=== PATIENT | male | born 1950 | race Caucasian/White ===

== ENCOUNTER → 2020-10-02 04:15 | Outpatient (CLI) | payer MEDICARE, OTHER, SELFPAY ==
[2020-10-02 19:57] LABS: SARS-CoV-2 RNA PCR Negative
== END ==
PROVIDERS: PCP Family Medicine; Visit Provider Plastic Surgery
DX: Z01.812 Encounter for preprocedural laboratory examination (principal); Z20.822 Contact with and (suspected) exposure to COVID-19
CPT/HCPCS: C9803; U0003; U0005

== ENCOUNTER 2020-10-02 08:44 | Outpatient (CLI) | payer MEDICARE, OTHER, SELFPAY ==
--- NOTE | 2020-10-02 08:52 | ECG_ITS ---
Measurements Intervals [place] Rate: 56 P: 20 AL: 174 QRS: 16 QRSD: 126 T: 2 QT: 414 QTc: 400 Interpretive Statements SINUS BRADYCARDIA VENTRICULAR BIGEMINY ABNORMAL ECG Electronically Signed On 10-02-2020 9:16:29 CDT by Will Diamond D.O.
== END 2020-10-02 08:45 | disposition home or self-care (01) ==
PROVIDERS: PCP Family Medicine; Visit Provider Anesthesiology
DX: Z01.810 Encounter for preprocedural cardiovascular examination (principal); I10 Essential (primary) hypertension; R94.31 Abnormal electrocardiogram [ECG] [EKG]
CPT/HCPCS: 93005; C9803; U0003; U0005

== ENCOUNTER 2020-10-05 02:02 | Day surgery (SDC) | payer MEDICARE, OTHER, SELFPAY ==
[2020-09-26 13:59] VITALS: BMI 24.0
[2020-10-05] VITALS (8 sets, daily range): BP systolic 108–129; BP diastolic 52–69; PULSE 48–67; RESP 16–24; TEMP 36.2–36.3; O2SAT 100
--- NOTE | 2020-10-05 07:21 | WPDHPUPDATE1 ---
History and Physical Update Update Date/Time: 10/05/20 07:21 History and Physical has been reviewed, including an updated exam of the patient. There are NO changes in the patient's condition. Risks, benefits, and alternatives have been discussed and questions answered. Patient agrees to proceed with procedure.
[2020-10-05] MEDS: LACTATED RINGERS 1,000 ML 30 ML IV CONT (10:20)
--- NOTE | 2020-10-05 10:34 | WPDANESEPPF ---
Anes - Initial Pre Proc Eval Procedure: Operation Date: 10/05/20 11:30 Proposed Procedures p Right Partial Palmar Fasciectomy - Bryce Cash MD Date/Time: 10/05/20 10:34 Surgeon: Bryce Cash MD Pre Op Diagnosis: dupuytren's contracture right small finger Patient Data Age: 70 Gender: M Height: 5 ft 8.5 in Weight: 71.65 kg Last Vital Signs Temp 97.1 F L 10/05/20 09:33 Pulse 48 L 10/05/20 09:33 Resp 20 10/05/20 09:33 BP 121/53 L 10/05/20 09:33 Pulse Ox 100 10/05/20 09:33 Allergies Allergy/AdvReac Type Severity Reaction Status Date / Time No Known Allergies Allergy Verified 10/05/20 10:11 Home Medications Medication Instructions Recorded Confirmed Type aspirin [Aspirin Low Dose] 81 mg PO DAILY 09/26/20 10/05/20 History atorvastatin 40 mg PO HS 09/26/20 10/05/20 History calcium carbonate-vitamin D3 1 tablet PO BID 09/26/20 10/05/20 History [Calcium + D] metoprolol succinate 12.5 mg PO QAM 09/26/20 10/05/20 History omeprazole 20 mg PO DAILY PRN 09/26/20 10/05/20 History Patient hx anesthesia problems: none Family hx anesthesia problems: none PMFSH Past Medical History Medical History (Updated 10/05/20 @ 10:38 by Raudel Sanchez MD) Arthritis Hyperlipidemia Hypertension Surgical History Surgical History (Updated 10/05/20 @ 10:38 by Raudel Sanchez MD) S/P CABG x 5 Social History Social History Smoking packs per day: 0.5 Smoking cigarettes per day: 10.0 Years smoked: 35 Smoking pack-years: 17.50 Smoking status: Former smoker Smoking end date: 12/08/07 Alcohol intake: never Substance use: never Living arrangements: alone Spiritual care concerns: No Anes - Eval Final PreProcedure Day of Procedure 10/05/20 10:34 Patient weight: normal Heart: regular rate and rhythm Lungs: clear to auscultation Airway: Mallampati scale class II Neurological: alert and oriented Last oral intake: >/= 8 hours ASA classification: III Emergent: no Anesthetic plan: proceed Anesthesia type and monitoring: general LMA and standard monitoring Informed Consent: The patient's anesthetic plan and its attendant risks and benefits were discussed with the patient/family/POA. Questions were solicited and answers provided to the satisfaction of the patient/family/POA.
[2020-10-05] MEDS: LIDO 1%/EPINEPHRINE 1:100,000 50 ML VIAL INFILTRATE (11:30)
--- NOTE | 2020-10-05 12:32 | PM.OP ---
Procedure Note - Brief Procedure Note - Brief Date of procedure: 10/05/20 Pre-op diagnosis: dupuytren's contracture right small finger Post-op diagnosis: same Procedure performed: Partial palmar fasciectomy right hand Implants: None Anesthesia: GETA Surgeon: Bryce Cash MD Guest Service Agent: Valeria Estimated blood loss (mL): 5 Tourniquet time (min): 56 Drains: No Packing: No Pathology: none sent Complications: No immediate complications Condition: stable Disposition: PACU
--- NOTE | 2020-10-05 12:36 | PM.PROC ---
Procedure Note - Detailed Date of procedure: 10/05/20 Pre-op diagnosis: dupuytren's contracture right small finger Post-op diagnosis: same Procedure performed: Right partial palmar fasciectomy of the small finger. Right 5th lumbrical tendon release Description of procedure: The contracted right small finger was marked on the patient holding. He was taken to the operating room and placed supine on the operating table. A time-out was held and confirmed. He was given general endotracheal anesthesia. The extremity was prepped and draped usual fashion. The site was marked for a diagonal palmar incision and a volar midline incision. 1% lidocaine with epinephrine was infiltrated locally. The tourniquet was inflated to 250 mmHg. The incision was made in the palm. The skin flaps were elevated and the pretendinous cord was removed care was taken to identify and preserve neurovascular bundles. The volar midline incision was made and skin flaps elevated to either side. The large nodular cord was removed from the proximal phalanx. This extended onto the middle phalanx on the ulnar side. This was removed. There was no spiral cord. The neurovascular bundles were protected. At that point the proximal interphalangeal joint could be straightened with a little additional pressure. Under this condition however, the distal interphalangeal joint could not be flexed. For that reason I proceed to release of the lumbrical tendon. This allowed passive flexion of the distal interphalangeal joint with the proximal interphalangeal joint flexed or extended. The wound was closed with the use of the Z-plasty over the middle phalanx. The tourniquet was released during that portion of the case a bulky bandage was applied with a volar Alumafoam splint allowing distal interphalangeal joint range of motion. The patient was discharged from the operating room to the recovery. He has instructions in wound care and follow-up. He will have a prescription for hydrocodone . Surgeon: Bryce Cash MD
== END 2020-10-05 14:20 | disposition home or self-care (01) ==
PROVIDERS: PCP Family Medicine; Visit Provider Plastic Surgery
PROC: (CPT 26045; principal; 2020-10-05 11:30)
DX: M72.0 Palmar fascial fibromatosis [Dupuytren] (principal); I10 Essential (primary) hypertension; E78.5 Hyperlipidemia, unspecified; K21.9 Gastro-esophageal reflux disease without esophagitis; I25.10 Atherosclerotic heart disease of native coronary artery without angina pectoris; Z95.1 Presence of aortocoronary bypass graft; Z87.891 Personal history of nicotine dependence
CPT/HCPCS: 26123; A9270; J2250; J2704; J3010; J7120

== ENCOUNTER 2022-10-08 12:37 | Outpatient (CLI) | payer MEDICARE, OTHER, SELFPAY | END 2022-10-08 12:38 | disposition home or self-care (01) | PROVIDERS: PCP Family Medicine; Visit Provider Specialist | DX: C44.712 Basal cell carcinoma of skin of right lower limb, including hip (principal) | CPT/HCPCS: 88305 ==

== ENCOUNTER 2023-11-10 07:36 | Outpatient (CLI) | payer MEDICARE, OTHER, SELFPAY ==
--- NOTE | 2023-11-10 08:04 | ECG_ITS ---
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 Measurements Intervals [place] Rate: 47 P: 41 NM: 220 QRS: 24 QRSD: 121 T: -14 QT: 457 QTc: 405 Interpretive Statements SINUS BRADYCARDIA WITH FIRST DEGREE AV BLOCK MODERATE INTRAVENTRICULAR CONDUCTION DELAY [110+ ms QRS DURATION] NONSPECIFIC ST & T-WAVE ABNORMALITY ABNORMAL ECG No previous ECG available for comparison Electronically Signed On 11-10-2023 14:46:30 CDT by Yossi Schneider M.D.
== END 2023-11-10 07:37 | disposition home or self-care (01) ==
LOC: ANHLAB 07:40
PROVIDERS: PCP Family Medicine; Visit Provider Anesthesiology
DX: Z01.818 Encounter for other preprocedural examination (principal); E11.22 Type 2 diabetes mellitus with diabetic chronic kidney disease; N18.9 Chronic kidney disease, unspecified; R94.31 Abnormal electrocardiogram [ECG] [EKG]; I44.0 Atrioventricular block, first degree; I45.89 Other specified conduction disorders
CPT/HCPCS: 93005

== ENCOUNTER 2023-11-13 10:19 | Day surgery (SDC) | payer MEDICARE, OTHER, SELFPAY ==
[2023-11-07 14:39] VITALS: BMI 25.8
--- NOTE | 2023-11-07 15:04 | PC.NURSE ---
CALLED DR SHANT MORRIS OFFICE, THEY ARE FAXING CMP LABWORK FROM END OF SEPTEMBER 2023.
--- NOTE | 2023-11-13 07:05 | P.OP_ITS ---
Procedure Note - Detailed Date of Procedure 11/13/23 Pre-op Diagnosis Dupuytrens Contracture Left Small Finger Post-op Diagnosis Same Procedure Performed left small finger fasciectomy Surgeon Vijaya Garcia MD [employer] cony love pa-c Anesthesia MAC Description of Procedure INFORMED CONSENT: The patient was seen and examined and marked in the pre-op area.? The patient signed the consent form. PROCEDURE IN DETAIL:The patient taken back to OR on the stretcher in supine position. Time out performed with anesthesia, surgeon and staff agreeing on patient's name site and surgery to be performed SCDs were placed on the lower extremities and inflated. A tourniquet was placed on {left} upper extremity and antibiotics given IV After anesthesia administered sedation I injected {}cc 1%lido with epi and 0.5% marcaine plain at the operative site The?{left upper extremity}?was prepped and draped in sterile fashion the??{left upper extremity} was? exsanguinated with Esmarch bandage and tourniquet inflated to 250mmHg I proceeded with making a longitudinal incision over the left small finger fascial cord through skin and dermis with a 15 blade scalpel. I elevated my skin flaps to expose the fascial cord. I circumferentially dissected around the cord near its origins proximally in the palm with the Littler scissors. I then transected the cord proximally. I proceeded with anterograde dissection of the cord identifying and protecting the neurovascular bundles while doing so. I proceeded with resection of the cord until I was able to achieve full extension of the MP and PIP joint. I irrigated with normal saline. I constructed Z- plasties crossing the flexion creases of the palm in MP joint. closed the skin with 4-0 chromic. A dressing of xeroform, 4x4, hood, and a volar splint was applied for patient safety, security, and comfort and secured with an esteban bandage after the tourniquet was let down noting the hand was warm and well perfused. The patient was then awaken from anesthesia and transferred to the recovery room in stable condition.? Complications - none EBL- 0cc Disposition - home in stable conditions cony love pa-c was essential for positioinng, retraction, closure and dressing placement [facility] [place] Billing Surgery - Charge Forward: Surgery Billing ([id number] for cony)
--- NOTE | 2023-11-13 07:05 | P.HPUP_ITS ---
History and Physical Update Update Date/Time: 11/13/23 07:05 Patient seen and examined in pre-operative holding area. No interval change in medical history or symptoms. Patient recalls previous discussion of benefits and alternatives to procedure. Continues to desire to proceed with left small finger fasciectomy . Reviewed procedure, post-op expectations and risks including but not limited to bleeding, infection, injury to tendon/nerve/vessel, decreased hand function, stiffness, RSD, no change or worsening of symptoms, recurrence, incomplete release. I discussed the possible use of assistants and their participation in the case. Patient stated understanding and signed the c onsent form wishing to proceed.
[2023-11-13 11:08] VITALS: BP 120/60; PULSE 52; RESP 15; TEMP 36.6; O2SAT 100
[2023-11-13] MEDS: LACTATED RINGERS 1,000 ML 30 ML IV CONT (11:25)
--- NOTE | 2023-11-13 11:45 | WPDANESEPPF ---
Anes - Initial Pre Proc Eval Procedure: Operation Date: 11/13/23 12:30 Proposed Procedures p Left Small Finger Fasciectomy - Vijaya Garcia MD Date/Time: 11/13/23 11:45 Surgeon: Vijaya Garcia MD Pre Op Diagnosis: Dupuytrens Contracture Left Small Finger Patient Data Age: 73 Gender: M Height: 1.73 m Weight: 78.4 kg Last Vital Signs Temp 36.6 C 11/13/23 11:08 Pulse 52 L 11/13/23 11:08 Resp 15 11/13/23 11:08 BP 120/60 11/13/23 11:08 Pulse Ox 100 11/13/23 11:08 O2 Del Method Room Air 11/13/23 11:08 Allergies Allergy/AdvReac Type Severity Reaction Status Date / Time No Known Allergies Allergy Verified 11/13/23 11:04 Home Medications Medication Instructions Recorded Confirmed Type atorvastatin 40 mg tablet 40 mg PO HS 09/26/20 11/13/23 History calcium carbonate 600 mg-vitamin 1 tablet PO BID 09/26/20 11/13/23 History D3 5 mcg (200 unit) tablet metoprolol succinate 25 mg 25 mg PO QAM 09/26/20 11/13/23 History tablet,extended release 24 hr aspirin 81 mg chewable tablet 81 mg PO DAILY 11/05/23 11/13/23 History denosumab 60 mg/mL subcutaneous 60 mg subcut [id number] 11/05/23 11/13/23 History syringe (Prolia) famotidine 20 mg tablet 20 mg PO .prn 11/05/23 11/13/23 History nitroglycerin 0.3 mg sublingual 0.3 mg sublingual Q5M PRN Chest 11/05/23 11/13/23 History tablet Pain spironolactone 25 mg tablet 25 mg PO DAILY 11/05/23 11/13/23 History valsartan 40 mg tablet 40 mg PO DAILY 11/05/23 11/13/23 History tramadol 50 mg tablet 50 mg PO Q6H PRN pain #12 tabs 11/13/23 Rx Patient hx anesthesia problems: none Family hx anesthesia problems: none Results Review: All pre-operative results and documents have been reviewed as part of the pre-operative evaluation. [facility] Past Medical History Medical History Arthritis Hyperlipidemia Hypertension Surgical History Surgical History S/P CABG x 5 Family History Family History Father Hypertension Heart disease Social History Social History Smoking packs per day: 0.5 Smoking cigarettes per day: 10.0 Years smoked: 35 Smoking pack-years: 17.50 Smoking status: Former smoker Tobacco type: cigarettes Second hand tobacco smoke exposure: No Smoking end date: 06/09/07 Alcohol intake: never Alcohol use details: 2 PER YEAR Substance use: never Substance use type: does not use Living arrangements: alone Spiritual care concerns: No Anes - Eval Final PreProcedure Day of Procedure 11/13/23 11:45 Patient weight: normal Heart: regular rate and rhythm Lungs: decreased breath sounds Airway: Mallampati scale class II Neurological: alert and oriented Last oral intake: >/= 8 hours ASA classification: III Emergent: no Anesthetic plan: proceed Anesthesia type and monitoring: general GIVS and standard monitoring Results Review: All pre-operative results and documents have been reviewed as part of the pre-operative evaluation. Informed Consent: The patient's anesthetic plan and its attendant risks and benefits were discussed with the patient/family/POA. Questions were solicited and answers provided to the satisfaction of the patient/family/POA.
[2023-11-13] MEDS: ceFAZolin SODIUM 2 GM/20 ML SW SYRINGE IV PUSH (11:58)
[2023-11-13] MEDS: BUPivacaine HCL 0.5% 10 ML AMP 2 ML INFILTRATE (12:03)
[2023-11-13] MEDS: LIDOCAINE HCL 1% LOCAL INJ 20 ML VIAL INFILTRATE (12:03)
[2023-11-13 12:26] VITALS: BP 92/68; PULSE 50; RESP 16; O2SAT 100
[2023-11-13 12:36] VITALS: BP 121/72; PULSE 45; RESP 16; O2SAT 99
[2023-11-13 12:45] VITALS: BP 121/72; PULSE 46; RESP 20; O2SAT 100
[2023-11-13 13:00] VITALS: BP 120/72; PULSE 44; RESP 15; O2SAT 97
--- NOTE | 2023-11-13 13:01 | WPDANESPN ---
Anes - Prog Note Post-Op Date/Time: 11/13/23 13:01 Cardiovascular status: normal Respiratory status: normal Airway patency: baseline Mental status: baseline Post-Op hydration status: normal Vital Signs: Last Vital Signs Temp 36.6 C 11/13/23 11:08 Pulse 44 L 11/13/23 13:00 Resp 15 11/13/23 13:00 BP 120/72 11/13/23 13:00 Pulse Ox 97 11/13/23 13:00 O2 Del Method Room Air 11/13/23 13:00 Pain Score (VAS): 0 Patient Feedback: Patient satisfied with anesthetic care.
== END 2023-11-13 13:19 | disposition home or self-care (01) ==
PROVIDERS: PCP Family Medicine; Visit Provider Plastic Surgery
PROC: (CPT 26045; principal; 2023-11-13 12:30)
DX: M72.0 Palmar fascial fibromatosis [Dupuytren] (principal)
CPT/HCPCS: 26123

== ENCOUNTER 2023-11-13 11:32 | Outpatient (NON) | payer MEDICARE, OTHER, SELFPAY | END 2023-11-13 11:33 | disposition home or self-care (01) | LOC: ANHLAB 11-14 11:35 | PROVIDERS: PCP Family Medicine; Visit Provider Plastic Surgery | DX: M72.0 Palmar fascial fibromatosis [Dupuytren] (principal) | CPT/HCPCS: 88305 ==

== ENCOUNTER 2024-04-13 10:20 | Outpatient (CLI) | payer MEDICARE, OTHER, SELFPAY | END 2024-04-13 10:21 | disposition home or self-care (01) | LOC: CHSLAB 10:29 | PROVIDERS: PCP Specialist; Visit Provider Specialist | DX: D48.5 Neoplasm of uncertain behavior of skin (principal) | CPT/HCPCS: 88305 ==